=== PATIENT | female | born 1965 ===

== ENCOUNTER → 2017-11-29 | Outpatient (CLI) | payer OTHER ==
[~2017-11-29] MED LIST: CIPRO500 MG PO; IBERSANTAN; INSULINA; NOVOLIN 70100 UNITS/ IJ; [UNRECOGNIZED DRUG - OTHER]
== END | disposition home or self-care (01) ==
LOC: MAMO-SONO 11:45
DX: Z12.31 Encounter for screening mammogram for malignant neoplasm of breast (principal); N64.89 Other specified disorders of breast; D63.1 Anemia in chronic kidney disease; N18.3 Chronic kidney disease, stage 3 (moderate); E08.22 Diabetes mellitus due to underlying condition with diabetic chronic kidney disease; E03.8 Other specified hypothyroidism; E08.65 Diabetes mellitus due to underlying condition with hyperglycemia; E08.42 Diabetes mellitus due to underlying condition with diabetic polyneuropathy; N39.0 Urinary tract infection, site not specified

== ENCOUNTER → 2017-12-26 | Emergency (ER) | payer OTHER ==
[~2017-12-26] VITALS: Ht 162.6 cm; Wt 69.9 kg
[~2017-12-26] MED LIST changes: +AVALIDE 300-121 EACH PO; +SYNTHROID50 MCG PO; +TOUJEO SOL300 UNIT/1 SQ; +VICTOZA 2-0.6 MG/0.1 SQ
== END | disposition home or self-care (01) ==
LOC: ER 01:33
DX: R00.2 Palpitations (principal); I10 Essential (primary) hypertension

== ENCOUNTER 2018-11-16 19:08 | Emergency (ER) | payer OTHER ==
[~2018-11-16] VITALS: Ht 160 cm; Wt 68.0 kg
[2018-11-16] MEDS ORDERED: NEURONTIN600 MG PO (19:12)
[2018-11-16] MEDS ORDERED: SIMVASTATIN20 MG PO (19:13)
[2018-11-16] MEDS ORDERED: INTEGRA CAPSUL1 EACH PO (19:13)
== END 2018-11-16 21:00 | disposition home or self-care (01) ==
LOC: ER 19:08
DX: M75.52 Bursitis of left shoulder (principal)

== ENCOUNTER 2018-11-22 11:32 | Emergency (ER) | payer OTHER ==
[~2018-11-22] VITALS: Ht 162.6 cm; Wt 77.1 kg
[~2018-11-22 11:32] MED LIST changes: +INTEGRA CAPSUL1 EACH PO; +NEURONTIN600 MG PO; +SIMVASTATIN20 MG PO
[2018-11-22] MEDS ORDERED: LEVSIN/SL0.125 MG SL (18:27)
[2018-11-22] MEDS ORDERED: PEPCID AC20 MG PO (18:27)
== END 2018-11-22 19:20 | disposition home or self-care (01) ==
LOC: ER 11:32
DX: K29.70 Gastritis, unspecified, without bleeding (principal); R10.11 Right upper quadrant pain

== ENCOUNTER 2019-01-04 07:56 | Outpatient (CLI) | payer OTHER ==
[~2019-01-04 07:56] MED LIST changes: +LEVSIN/SL0.125 MG SL; +PEPCID AC20 MG PO
== END 2019-01-04 15:00 | disposition home or self-care (01) ==
LOC: LAB 07:56
DX: D63.1 Anemia in chronic kidney disease (principal); N18.3 Chronic kidney disease, stage 3 (moderate); E08.22 Diabetes mellitus due to underlying condition with diabetic chronic kidney disease; E03.8 Other specified hypothyroidism; E08.65 Diabetes mellitus due to underlying condition with hyperglycemia; E08.42 Diabetes mellitus due to underlying condition with diabetic polyneuropathy; N63.10 Unspecified lump in the right breast, unspecified quadrant; N63.20 Unspecified lump in the left breast, unspecified quadrant; Z12.31 Encounter for screening mammogram for malignant neoplasm of breast; N39.0 Urinary tract infection, site not specified; D50.8 Other iron deficiency anemias; D51.8 Other vitamin B12 deficiency anemias; I10 Essential (primary) hypertension; R97.0 Elevated carcinoembryonic antigen [CEA]; R97.8 Other abnormal tumor markers

== ENCOUNTER → 2019-05-03 | Emergency (ER) | payer OTHER ==
[~2019-05-03] VITALS: Ht 167.6 cm; Wt 78.0 kg
== END | disposition home or self-care (01) ==
LOC: ER 21:02
DX: S00.83XA Contusion of other part of head, initial encounter (principal); M62.838 Other muscle spasm; W18.09XA Striking against other object with subsequent fall, initial encounter; Y93.89 Activity, other specified; Y92.22 Religious institution as the place of occurrence of the external cause; Y99.8 Other external cause status